=== PATIENT | male | born 1955 | race Caucasian/White ===

== ENCOUNTER 2016-12-25 09:30 | Day surgery (SDC) | payer OTHER ==
[~2016-12-25] VITALS: Ht 180.3 cm; Wt 90.7 kg
[~2016-12-25 09:30] MED LIST: 0.9% Sodium Chloride 1,000 ML IV SCH; ALBU90AE IH; ASPI-973 PO; BECL8.7A6 INHALATION; BENA20TA PO; CHOL100045 PO; HYDR25TA4 PO; Sodium Chloride LOK Flush 10 mL Syringe IV PRN; VARD20TA30 PO; fentaNYL-PF 50 mCg/mL 2 mL Inj IVPUSH PRN
[2016-12-25 10:28] VITALS: BP 124/83; PULSE 72; RESP 16; O2SAT 97
[2016-12-25 12:20] VITALS: BP 120/73; PULSE 69; RESP 16; O2SAT 97
[2016-12-25 12:30] VITALS: BP 110/69; PULSE 65; RESP 16; O2SAT 97
[2016-12-25 12:39] VITALS: BP 119/79; PULSE 67; RESP 16; O2SAT 96
--- NOTE | 2016-12-25 21:16 | ENDO ---
[address] [address] ENDOSCOPY PROCEDURE PATIENT: KRISTI DELEON : 1955 MR#: [id number] ADMIT: 12/25/2016 JOB ID: [id number] PROCEDURE: Colonoscopy. INDICATIONS: Screening. Patient's ASA classification is II. Mallampati score is II. MEDICATIONS: Versed 4 mg, fentanyl 100 mcg. INSTRUMENT USED: PCF-H180AL Prep quality was good. PROCEDURE DETAILS: After informed consent was obtained, the patient was brought to the GI suite, where he was placed on oxygen via nasal cannula and monitored with continuous pulse oximeter, telemetry, and blood pressure monitoring. A time-out was performed. Then, he was placed in the left lateral decubitus position and medications were administered for sedation. Digital rectal exam with palpation of the prostate was performed and was unremarkable. The colonoscope was then inserted into the rectum and advanced under direct visualization to the cecum, which was identified by the presence of the ileocecal valve and appendiceal orifice. Once the cecum was reached, the colonoscope was then withdrawn back into the rectum as the mucosa and lumen were examined. In the rectum, retroflexion was performed. Following retroflexion, remaining air was suctioned and the procedure was completed. FINDINGS: 1. In the colon there were five polyps ranging in size from diminutive to approximately 4 mm. They were removed with a combination of cold biopsy forceps and cold snares. 2. As the scope was being withdrawn from the rectum in the anal canal, small to moderate-sized internal hemorrhoids were noted. IMPRESSION: 1. Five rectal polyps. 2. Internal hemorrhoids. RECOMMENDATIONS: Repeat colonoscopy pending polyp pathology results. COMPLICATIONS: None. ESTIMATED BLOOD LOSS: Less than 5 mL. CC: ASUNCION Omer.
--- NOTE | 2016-12-29 13:14 | PATH ---
SURGICAL PATHOLOGY Attending Physician:Ramírez Melvin CASE STATUS: Signed Out PATIENT NAME: KRISTI DELEON PID: [id number] : 1955 DATE COLLECTED:12/25/2016 20:09 SPECIMEN: Rectum, Biopsy CLINICAL HISTORY: POLYPS 1). RECTAL POLYPS X5 FINAL DIAGNOSIS: 1.RECTUM, POLYPS, BIOPSIES: HYPERPLASTIC POLYPS. ICD10 CODE K62.1 GROSS DESCRIPTION: The specimen is received in one formalin filled container labeled with the patient's name, sublabeled "rectal polyps" and consists of multiple portions of tissue which aggregate to 0.4 x 0.4 x 0.3 CM. The specimen is entirely submitted in one cassette. 12/25/2016 [facility] MICRO DESCRIPTION: See diagnosis. ICD-9 CODES: CPT CODES: 1: 81281 Electronically Signed Out Jesika Taylor MD [facility] Pathology [facility] [address], [place] [address] Technical component performed at [facility], [facility] [address], [place], [address]
== END 2016-12-25 23:59 | disposition home or self-care (01) ==
LOC: END 09:30
PROVIDERS: ATTEND Internal Medicine Gastroenterology
DX: Z12.11 Encounter for screening for malignant neoplasm of colon (principal); K64.8 Other hemorrhoids; K62.1 Rectal polyp
CPT/HCPCS: 45380; 45385; 99153; G0500; J7030